=== PATIENT | female | born 1975 | race Two or more races ===

== ENCOUNTER 2025-03-21 10:38 | Emergency (ER) | payer OTHER ==
[~2025-03-21] VITALS: Ht 170.2 cm; Wt 72.6 kg
[2025-03-21 10:57] VITALS: BP 134/92
[2025-03-21] MEDS ORDERED: ERYT3.5O24 LEFTEYE (11:57)
[2025-03-21] MEDS ORDERED: CLIN-188 PO (11:57)
[2025-03-21 12:12] VITALS: BP 124/88; TEMP 98; O2SAT 99
== END 2025-03-21 12:13 | disposition home or self-care (01) ==
LOC: ER 10:38
DX: L03.213 Periorbital cellulitis (principal); E11.9 Type 2 diabetes mellitus without complications
CPT/HCPCS: A4606; A4663